=== PATIENT | female | born 1975 | race Caucasian/White ===

== ENCOUNTER → 2020-05-19 | Outpatient (CLI) | payer BC ==
[2020-05-19 07:41] LABS: INR 1.02; PROTHROMBIN TIME 13.6 SECONDS (12.5-14.3)
== END ==
LOC: M LAB 07:08
PROVIDERS: ATTEND Pain Medicine Interventional Pain Medicine
DX: M54.16 Radiculopathy, lumbar region (principal)

== ENCOUNTER → 2020-08-04 | Outpatient (CLI) | payer BC ==
[2020-08-04 07:45] LABS: INR 1.26; PROTHROMBIN TIME 16.1 SECONDS (12.5-14.3)
== END ==
LOC: M LAB 06:45
PROVIDERS: ATTEND Nurse Practitioner Family
DX: Z51.81 Encounter for therapeutic drug level monitoring (principal); Z79.899 Other long term (current) drug therapy

== ENCOUNTER → 2020-12-08 | Outpatient (CLI) | payer BC ==
[2020-12-08 08:14] LABS: INR 1.12; PROTHROMBIN TIME 14.9 SECONDS (12.7-14.5)
== END ==
LOC: M LAB 06:40
PROVIDERS: ATTEND Nurse Practitioner Family
DX: Z51.81 Encounter for therapeutic drug level monitoring (principal)

== ENCOUNTER → 2021-09-25 | Outpatient (CLI) | payer BC ==
[2021-09-25 06:40] LABS: INR 1.06; PROTHROMBIN TIME 14.2 SECONDS (12.7-14.5)
== END ==
LOC: M LAB 06:06
PROVIDERS: ATTEND Nurse Practitioner Family
DX: Z51.81 Encounter for therapeutic drug level monitoring (principal)

== ENCOUNTER → 2022-02-08 | Outpatient (CLI) | payer BC ==
[2022-02-08 07:36] LABS: INR 1.27; PROTHROMBIN TIME 16.2 SECONDS (12.5-14.5)
== END ==
LOC: M LAB 06:54
PROVIDERS: ATTEND Nurse Practitioner Family
DX: Z51.81 Encounter for therapeutic drug level monitoring (principal); Z79.899 Other long term (current) drug therapy

== ENCOUNTER → 2022-10-18 | Outpatient (CLI) | payer BC ==
[2022-10-18 07:47] LABS: INR 1.2; PROTHROMBIN TIME 14.8 SECONDS (12.5-14.5)
== END ==
LOC: M LAB 06:37
PROVIDERS: ATTEND Pain Medicine Interventional Pain Medicine
DX: Z51.81 Encounter for therapeutic drug level monitoring (principal)